=== PATIENT | female | born 2005 | race Caucasian/White ===

== ENCOUNTER 2023-03-18 12:31 | Inpatient (IN) | payer BC ==
[~2023-03-18] VITALS: Ht 170.2 cm; Wt 64.7 kg
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
[2023-03-18] MEDS ORDERED: acetaminophen 325mg tablet PO PRN ×2 (13:20)
[2023-03-18] MEDS ORDERED: loperamide 2mg capsule PO PRN (13:20)
[2023-03-18] MEDS ORDERED: mag hydrox/Alum hydrox/simeth 30ml oral suspension PO PRN (13:20)
[2023-03-18] MEDS ORDERED: magnesium hydroxide 30ml (MOM) UD suspension PO PRN (13:20)
[2023-03-18] MEDS ORDERED: nicotine 21mg patch - 24 hr TD ONE (15:30)
[2023-03-18] MEDS: NICOTINE POLACRILEX 2 MG LOZENGE BC PRN (16:34)
[2023-03-18] MEDS ORDERED: hydrOXYzine 25 MG tablet PO PRN (16:35)
[2023-03-18] MEDS: hydrOXYzine 25 MG tablet PO PRN (18:16)
[2023-03-18 20:00] VITALS: BP 119/68
[2023-03-18] MEDS: traZODone 50mg tablet PO PRN (21:41)
--- NOTE | 2023-03-19 05:52 | NUR ---
Nurses Progress Note: Problem: Pt admitted from [facility] on a 5150 for DTS. Pt drove herself to the ER reporting, "If I go home, I will take pills so I can ." Interventions: 1:1 assessment, therapeutic communication, active listening, provided clear and simple instructions, medication administration/education/monitoring, behavior monitoring and intervention as needed; provided distraction, direction, positive reinforcement, reality orientation, maintained a safe and supportive environment, and Q15 minute safety checks. Response: Pt received in rec room where she is listening to peers play the [employer]. Pt is pleasant and cooperative. Pt is alert and oriented x4. Pt has no scheduled HS medications but was given Trazodone 50 mg for sleep. Pt is social with peers. Encourage pt. to attend groups during the day and attend to ADLs before going to sleep. Pt endorses SI with a plan to overdose but does not want to act on. Pt denies HI/AH/VH. Monitor for safety q15 minutes. Plan: Pt. continues to require medication adjustments and a safe and supportive environment.
[2023-03-19 07:26] LABS: CHOL/HDL RATIO 3.3 (0.00-4.99); CHOLESTEROL 171 MG/DL (0-200); HDL CHOLESTEROL 52 MG/DL (35-60); LDL CHOLESTEROL 98 MG/DL (50-100); TRIGLYCERIDES 117 MG/DL (20-135)
[2023-03-19 08:00] VITALS: BP 116/67
[2023-03-19 08:02] LABS: HEMOGLOBIN A1C 5.4 % (4.5-6.2)
[2023-03-19] MEDS: hydrOXYzine 25 MG tablet PO PRN ×2 (08:33→18:57)
[2023-03-19] MEDS: nicotine 21mg patch - 24 hr TD SCH (08:33)
--- NOTE | 2023-03-19 09:09 | NUR ---
NURSING PROGRESS NOTE Problem: Pt admitted from [facility] on a 5150 for DTS. Pt drove herself to the ER reporting, "If I go home, I will take pills so I can ." Interventions: Provided 1:1 assessment with therapeutic communication and active listening; Maintained a safe and supportive environment; provided clear and simple instructions, attempted to orient to reality, provided redirection, limit setting, and maintained Q 15min safety checks. Response: Received pt sleeping at shift change. Pt woke for breakfast. Pt observed after breakfast drawing while sitting on her bed. Pt states she likes to draw "when I have time." Pt later tracked this nurse down and asked for her Nicotine Patch. She shared she was feeling anxious. Administered PRN Atarax 50mg with good effect. During morning assessment pt shared she has been having problems with her moods. She states, "like this morning, I thought I was doing okay feeling better than the next minute I felt irritated and sad, like I could cry." She reports sleeping well last night after taking Trazodone for sleep. Plan: Pt is in need of a safe and supportive environment at this time.
[2023-03-19] MEDS: NICOTINE POLACRILEX 2 MG LOZENGE BC PRN ×2 (13:57→18:57)
[2023-03-19] MEDS ORDERED: DESO1TAB33 PO (14:28)
--- NOTE | 2023-03-19 14:52 | NUR ---
Assumed pt care at 1400. Pt is currently reading a book in her room, denies MH symptoms currently.
[2023-03-19] MEDS ORDERED: DULO60CA65 PO (15:06)
[2023-03-19 20:00] VITALS: BP 107/72
[2023-03-19] MEDS: traZODone 50mg tablet PO PRN (21:03)
[2023-03-19] MEDS: ARIPIPRAZOLE 15 MG TABLET PO SCH (21:03)
--- NOTE | 2023-03-20 05:50 | NUR ---
Nurses Progress Note: Jami Sharp Problem: Pt admitted from [place] ER on a 5150 for DTS. Pt drove herself to the ER reporting, "If I go home, I will take pills so I can ." Interventions: 1:1 assessment, therapeutic communication, active listening, provided clear and simple instructions, medication administration/education/monitoring, behavior monitoring and intervention as needed; provided distraction, direction, positive reinforcement, reality orientation, maintained a safe and supportive environment, and Q15 minute safety checks. Response: Received pt. in rec room, pt. socializing with peers. During 1:1 interview pt. started to cry saying, I made so many mistakes in the past and I dont like myself for hurting the people I love. Fishing Accessories Maker used therapeutic listening, then reassured pt. that she can overcome her past mistakes. Pt denies SI/HI/AH/VH. Her depression is rated 8/10 with her anxiety 7/10. Atarax 50mg given. Encouraged pt. to attend groups to learn coping skills and try to journal. Pt is medication compliant. Nicotine lozenge was given with medication pass. Monitor for safety q15 minutes for safety. Plan: Pt. continues to require medication adjustments and a safe and supportive environment.
[2023-03-20] MEDS: hydrOXYzine 25 MG tablet PO PRN ×2 (07:47→13:25)
[2023-03-20] MEDS: E ESTRADIOL PO SCH (08:00)
[2023-03-20] MEDS: DESOG E ESTRADIOL PO SCH (08:00)
[2023-03-20] MEDS: nicotine 21mg patch - 24 hr TD SCH (08:08)
[2023-03-20] MEDS: NICOTINE POLACRILEX 2 MG LOZENGE BC PRN ×3 (10:06→18:22)
[2023-03-20 10:09] VITALS: BP 93/51
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
--- NOTE | 2023-03-20 17:31 | NUR ---
Nurses Progress Note: Jami Problem: Pt admitted from [place] ER on a 5150 for DTS. Pt drove herself to the ER reporting, "If I go home, I will take pills so I can ." Interventions: Provided 1:1 assessment, therapeutic communication, active listening, medication administration/education/monitoring, provided positive reinforcement, reality orientation, maintained a safe and supportive environment, and Q15 minute safety checks. Response: Patient approached this ticket writer shortly after shift change endorsing feelings on anxiety. She was given PRN Atarax per MD order with noted effectiveness. Pt joined for breakfast in the group room with peers and was receptive to scheduled medication. She is pleasant, social, and cooperative with care. Patient denies SI/HI, AH or VH. She endorsed feeling super anxious after lunch and was provided with PRN medication per MD order. Pt was noted to be active on the unit the majority of the shift. She was observed sitting in the recreation room listening to another peer play the guitar. Pt joined for all meal and snack times in the group room today. Plan: Pt. continues to require medication adjustments and a safe and supportive environment.
--- NOTE | 2023-03-20 17:33 | NUR ---
GLOBAL SOURCING MANAGER documentation: I have reviewed and agree with all interventions, assessments performed and documented by Raina OAKES.
[2023-03-20 20:00] VITALS: BP 118/70
[2023-03-20] MEDS: ARIPIPRAZOLE 15 MG TABLET PO SCH (20:43)
[2023-03-20] MEDS: mirtazapine 15mg tablet PO SCH (20:43)
--- NOTE | 2023-03-21 02:55 | NUR ---
pt in community room, singing while another played guitar. the guitar got passed off to another pt and much conversation with other pts. took HS medications and went to bed.
[2023-03-21 08:00] VITALS: BP 102/78
[2023-03-21] MEDS: E ESTRADIOL PO SCH (08:00)
[2023-03-21] MEDS: DESOG E ESTRADIOL PO SCH (08:00)
[2023-03-21] MEDS: nicotine 21mg patch - 24 hr TD SCH (08:32)
[2023-03-21] MEDS: NICOTINE POLACRILEX 2 MG LOZENGE BC PRN ×3 (08:35→18:07)
[2023-03-21] MEDS ORDERED: cloNIDine 0.1 mg tablet PO PRN (13:20)
--- NOTE | 2023-03-21 14:45 | NUR ---
Nurses Progress Note: Problem: Pt admitted from [facility] on a 5150 for DTS. Pt drove herself to the ER reporting, "If I go home, I will take pills so I can ." Interventions: Provided 1:1 assessment, therapeutic communication, active listening, medication administration/education/monitoring, provided positive reinforcement, reality orientation, maintained a safe and supportive environment, and Q15 minute safety checks. Response: 1:1 done at bedside, medications administered with no issues. Denies SI/HI but is still feeling anxious and depressed. She requested her nicotine lozenge at 0705 which she stated helped her anxiety. Pt states she had feelings of nausea and one episode of loose stools this AM but once she ate breakfast she felt better. Nurse educated pt on possible side effects of new medication and that they should subside over time. Pt was ok with. Pt control discontinued per pt request, she voiced concerns of it causing mood fluctuations. Pt attended group. Pt was calm and cooperative this shift. Seen socializing with peers. Plan: Pt. continues to require medication adjustments and a safe and supportive environment.
--- NOTE | 2023-03-21 15:32 | NUR ---
DISCHARGE PLAN-Fri03/24/23 8 AM Jami's parents, Adolfo and Rere, are planning on picking Jami up around 8 AM on Friday to drive her to [facility]. She is going to fly to [facility] where she will get picked up by staff from the facility, [facility]. She has been accepted at [facility] and they will have a bed available to her on Friday. They have requested her medications get sent to [facility] (pharmacy is saved in discharge pharmacy). Adolfo ph# [phone] Rere ph# [phone] ALLEN Coronado Addendum: 03/21/23 at 1549 by Niurka Phillips Please do a Covid test Friday PM as required by the facility she has been accepted at. ALLEN Coronado
[2023-03-21] MEDS: hydrOXYzine 25 MG tablet PO PRN (15:33)
--- NOTE | 2023-03-21 16:12 | NUR ---
Tonyid test obtained and sent to the lab. Addendum: 03/21/23 at 1617 by Sharifa Ma RN Covid test to be obtained Friday 03/23. Test obtained this shift in error.
[2023-03-21 20:00] VITALS: BP 123/74
[2023-03-21] MEDS: mirtazapine 15mg tablet PO SCH (20:19)
[2023-03-21] MEDS: ARIPIPRAZOLE 15 MG TABLET PO SCH (20:19)
--- NOTE | 2023-03-22 05:00 | NUR ---
Nurses Progress Note: Problem: Pt admitted from [place] ER on a 5150 for DTS. Pt drove herself to the ER reporting, "If I go home, I will take pills so I can ." Interventions: Provided 1:1 assessment, therapeutic communication, active listening, medication administration/education/monitoring, provided positive reinforcement, reality orientation, maintained a safe and supportive environment, and Q15 minute safety checks. Response: Patient was received singing with other patient in rec room at change of shift. Patient continued to sing different songs until snack time. Patient requested prn clonidine for aniexty and called multiple family members before going to bed. Plan: Pt. continues to require medication adjustments and a safe and supportive environment.
--- NOTE | 2023-03-22 05:05 | NUR ---
STUDENT CAREER DEVELOPMENT SPECIALIST documentation: I have reviewed all interventions, assessments performed and documented by Juan OAKES.
[2023-03-22 07:00] VITALS: BP 111/64
[2023-03-22 07:43] VITALS: BP 102/63
[2023-03-22] MEDS: nicotine 21mg patch - 24 hr TD SCH (08:28)
[2023-03-22] MEDS: NICOTINE POLACRILEX 2 MG LOZENGE BC PRN ×2 (11:15→18:11)
[2023-03-22] MEDS: hydrOXYzine 25 MG tablet PO PRN (15:37)
--- NOTE | 2023-03-22 15:45 | NUR ---
Nurses Progress Note: Problem: Pt admitted from [facility] on a 5150 for DTS. Pt drove herself to the ER reporting, "If I go home, I will take pills so I can ." Interventions: Provided 1:1 assessment, therapeutic communication, active listening, medication administration/education/monitoring, provided positive reinforcement, reality orientation, maintained a safe and supportive environment, and Q15 minute safety checks. Response: Nurse received pt asleep at change of shift, she awoke for breakfast. Pt did not feel nauseas or have loose stools this AM. She did have some anxiety with c/o shakiness upon rising. Pt stated once she started eating breakfast her anxiety subsided and she declined the need for anxiety meds at that time. 1:1 done at bedside. Pt denied SI. Pt had visitors this shift and attended group and went outside on the patio. PRN Atarax utilized at 1540 for c/o anxiety. Pt stated she tries to push through her anxious feelings because she doesnt want to become dependent on medications but shrugged her shoulders and said, but "if I need them, I need them." Pt calm, cooperative and pleasant. Plan: DISCHARGE PLAN-Fri03/24/23 8 AM; Jami's parents, Adolfo and Rere, are planning on picking Jami up around 8 AM on Saturday 03/[address] her to [facility]. She is going to fly to [facility] where she will get picked up by staff from the facility, [facility]. She has been accepted at [facility] and they will have a bed available to her on Friday. They have requested her medications get sent to [facility] (pharmacy is saved in discharge pharmacy).
[2023-03-22 20:00] VITALS: BP 111/64
[2023-03-22] MEDS: mirtazapine 15mg tablet PO SCH (20:50)
[2023-03-22] MEDS: ARIPIPRAZOLE 15 MG TABLET PO SCH (20:50)
--- NOTE | 2023-03-23 03:23 | NUR ---
Nurses Progress Note: Problem: Pt admitted from [place] ER on a 5150 for DTS. Pt drove herself to the ER reporting, "If I go home, I will take pills so I can ." Interventions: Provided 1:1 assessment, therapeutic communication, active listening, medication administration/education/monitoring, provided positive reinforcement, reality orientation, maintained a safe and supportive environment, and Q15 minute safety checks. Response: Patient sitting in hallway singing songs with a male peer playing the guitar. Music was peaceful and well played. Patient denies all mental health symptoms. Patient denies SI. Reports she is not feeling depressed at this time. Patient took her medication and went to bed. Plan: Pt. continues to require medication adjustments and a safe and supportive environment.
[2023-03-23 08:00] VITALS: BP 109/80
[2023-03-23] MEDS: hydrOXYzine 25 MG tablet PO PRN (08:06)
[2023-03-23] MEDS: nicotine 21mg patch - 24 hr TD SCH (08:06)
--- NOTE | 2023-03-23 09:15 | NUR ---
Initial: Pt admit DX bipolar 1 d/o, depressed and SI per EMR. PO fluctuates overall ~59% avg regular diet though improving to ~71% avg past 2.5 days participating in snacks likely meeting estimated needs. M 03/21. No nutrition interventions at this time. Will continue to follow. Rec: 1. continue regular diet 2. bowel care per rx 3. weekly wt Addendum: 03/23/23 at [address] Amended: Links added.
[2023-03-23] MEDS: NICOTINE POLACRILEX 2 MG LOZENGE BC PRN ×2 (09:28→15:43)
[2023-03-23] MEDS ORDERED: NICO-907 BC (12:36)
[2023-03-23] MEDS ORDERED: NICO-687 TD (12:36)
[2023-03-23] MEDS ORDERED: TRAZ-251 PO (12:36)
[2023-03-23] MEDS ORDERED: ARIP30TA22 PO (12:36)
[2023-03-23] MEDS ORDERED: MIRT-88 PO (12:36)
[2023-03-23] MEDS ORDERED: CLON0.1T2 PO (12:36)
--- NOTE | 2023-03-23 16:04 | NUR ---
Nurses Progress Note: Problem: Pt admitted from [place] ER on a 5150 for DTS. Pt drove herself to the ER reporting, "If I go home, I will take pills so I can ." Interventions: Provide medication administration & medication management; Maintained a safe & supportive environment; Clear & simple instructions; Direction & encouragement regarding performance of ADLs; monitored behaviors & maintained clear boundaries; Patient physical assessment & 1:1 patient interview; Therapeutic conversation & active listening; Patient education & monitoring. Response: Received patient at 0630 when she was sleeping in her bed. Patient woke up and went to the Community Room at 0700 and sat with her roommate coloring pictures and writing notes. Patient reports she is feeling great today. Patient is linear in her thought process, kind and cooperative. Patient took her medications without hesitation. Patient received Atarax x1 this morning for c/o anxiety and reported she received good relief from her anxiety. Patient spent much of the afternoon with another male patient, and while he played guitar, she sang beautifully. Wow!! Both are very talented and they were a pleasure to listen to. Patient ambulated in the hallways multiple rounds this afternoon with another peer. Plan: DISCHARGE PLAN-Fri03/24/23 8 AM; Jami's parents, Adolfo and Rere, are planning on picking Jami up around 8 AM on Saturday 03/[address] her to [facility]. She is going to fly to [facility] where she will get picked up by staff from the facility, [facility]. She has been accepted at [facility] and they will have a bed available to her on Friday. They have requested her medications get sent to [facility] (pharmacy is saved in discharge pharmacy).
[2023-03-23 20:55] VITALS: BP 121/74
[2023-03-23] MEDS: mirtazapine 15mg tablet PO SCH (21:11)
[2023-03-23] MEDS: ARIPIPRAZOLE 15 MG TABLET PO SCH (21:11)
[2023-03-23] MEDS: traZODone 50mg tablet PO PRN (21:11)
--- NOTE | 2023-03-24 05:34 | NUR ---
Nurses Progress Note: Jami Problem: Pt admitted from [place] ER on a 5150 for DTS. Pt drove herself to the ER reporting, "If I go home, I will take pills so I can ." Interventions: 1:1 assessment, therapeutic communication, active listening, provided clear and simple instructions, medication administration/education/monitoring, behavior monitoring and intervention as needed; provided distraction, direction, positive reinforcement, reality orientation, maintained a safe and supportive environment, and Q15 minute safety checks. Response: Pt is socializing in day room, singing while another peer plays guitar. I wrote this song and Tyler is going to play the guitar while I sing. Pt is pleasant and cooperative. Pt is medication compliant and took Trazodone 50 mg for sleep. Pt is anxious but excited about her discharge tomorrow. Im flying out of [place] to [facility] to a program my parents found. Pt denies SI/HI/AVH or depression. Pt took a shower tonight. Monitor for safety. Plan: Pt. continues to require medication adjustments and a safe and supportive environment.
[2023-03-24 07:30] VITALS: BP 111/77
[2023-03-24] MEDS: nicotine 21mg patch - 24 hr TD SCH (08:00)
--- NOTE | 2023-03-24 08:25 | NUR ---
DISCHARGE NOTE: Pt. picked up by father and driven to [facility]. She is going to fly to [facility] where she will get picked up by staff from the facility, [facility]. She has been accepted at [facility] and they will have a bed available to her on Friday. Medications escripted to [facility] pharmacy. Pt. discharged with all belongings and valuables. Pt. signed all discharged paperwork, including discharge medications, firearms restriction, emergency phone numbers. pt. denies SI/HI, A/V hallucinations. Pt. is A&Ox4 and in no apparent distress.
== END 2023-03-24 08:25 | disposition home or self-care (01) | DRG 885 ==
LOC: ADULT MH 13:05
PROVIDERS: ADMIT Psychiatry & Neurology Psychiatry; ATTEND Psychiatry & Neurology Psychiatry
DX: F31.30 Bipolar disorder, current episode depressed, mild or moderate severity, unspecified (principal); R45.851 Suicidal ideations; F41.0 Panic disorder [episodic paroxysmal anxiety]; J45.909 Unspecified asthma, uncomplicated; F17.200 Nicotine dependence, unspecified, uncomplicated; Z20.822 Contact with and (suspected) exposure to COVID-19; F12.10 Cannabis abuse, uncomplicated; Z81.8 Family history of other mental and behavioral disorders; Z81.1 Family history of alcohol abuse and dependence; Z63.72 Alcoholism and drug addiction in family; Z86.59 Personal history of other mental and behavioral disorders; Z79.899 Other long term (current) drug therapy
CPT/HCPCS: 36415; 80061; 83036; 87081; 87811; A6258; Q0177